=== PATIENT | male | born 1980 | race American Indian/Alaskan Native ===

== ENCOUNTER 2019-11-07 10:34 | Emergency (ER) | payer SELFPAY ==
[2019-11-07 10:44] VITALS: BP 135/84
--- NOTE | 2019-11-07 11:57 | Emergency Department Report ---
Suture/Staple Removal - [facility] Chief Complaint: Laceration/Recheck/Suture Stated Complaint: REMOVE STICHES Time Seen by Provider: 11/07/19 11:39 When Sutures or Rochelle Placed: 8-10 Days Ago Wound Location: left anterior lower leg ED Review of Systems ROS: Stated complaint: REMOVE STICHES Other details as noted in HPI Comment: All other systems reviewed and negative ED Past Medical Hx - Past Medical History Previous Medical History?: No Hx Congestive Heart Failure: No Hx Diabetes: No Hx Asthma: No Hx COPD: No Hx HIV: No - Surgical History Past Surgical History?: No - Social History Smoking Status: Current Every Day Smoker Substance Use Type: None - Medications Home Medications: Home Medications Medication Instructions Recorded Confirmed Last Taken Type Amoxicillin/K Clav Tab [Augmentin 1 tab PO Q12HR #20 tab 10/27/19 Unknown Rx 875 mg] Ibuprofen [Motrin 600 MG tab] 600 mg PO Q8H PRN #30 tablet 10/27/19 Unknown Rx Clindamycin [Clindamycin CAP] 300 mg PO Q8H #21 cap 11/07/19 Unknown Rx Ibuprofen [Motrin] 800 mg PO Q8HR #30 tablet 11/07/19 Unknown Rx Oxycodone HCl/Acetaminophen 1 each PO Q6HR PRN #12 tablet 11/07/19 Unknown Rx [Percocet 7.5/325 mg] Suture Removal Exam - Exam General: Vital signs noted. No distress. Alert and acting appropriately. Wound: No Pathologic Erythema, No Tenderness, No Drainage, No Pus, No Wound Dehiscence Other Systems: All other systems reviewed and are unremarkable. ED Course Vital Signs 11/07/19 10:44 Temperature 98.4 F Pulse Rate 86 Respiratory 16 Rate Blood Pressure 135/84 [Right] O2 Sat by Pulse 98 Oximetry ED Recheck MDM - Medical Decision Making Patient here status post dog bite suture removal. Upon assessment of the wound. Sutures are not ready to be taken out. His wound is still open. Wound is healing very slowly, due to intensity of wound. Sutures were not removed at this time. Discussed with patient to follow-up in a week for wound check Vital signs are normal patient is in no acute distress. Discussed with patient to follow-up with primary care physician. Critical care attestation.: If time is entered above; I have spent that time in minutes in the direct care of this critically ill patient, excluding procedure time. ED Disposition Clinical Impression: Encounter for removal of sutures, Visit for wound check Disposition: DC TO HOME OR SELFCARE Is pt being admited?: No Does the pt Need Aspirin: No Condition: Stable Instructions: Acute Wound Care (ED) Additional Instructions: Make sure to follow up with the primary care physician as discussed. If you have any worsening symptoms or develop new symptoms please return to ED immediately. Prescriptions: Clindamycin [Clindamycin CAP] 300 mg PO Q8H #21 cap Ibuprofen [Motrin] 800 mg PO Q8HR #30 tablet Oxycodone HCl/Acetaminophen [Percocet 7.5/325 mg] 1 each PO Q6HR PRN #12 tablet PRN Reason: Pain Referrals: PRIMARY CARE, [Primary Care Provider] - 3-5 Days [facility] [place] [Outside] - 3-5 Days Forms: Work/School Release Form(ED) Time of Disposition: 12:11
== END 2019-11-07 12:12 | disposition home or self-care (01) ==
LOC: ED 10:34
DX: T14.8XXD Other injury of unspecified body region, subsequent encounter (principal); Z48.02 Encounter for removal of sutures